=== PATIENT | male | born 1960 | race Asian ===

== ENCOUNTER 2023-03-28 05:43 | Day surgery (SDC) | payer MEDICAID ==
[~2023-03-28] VITALS: Ht 175.3 cm; Wt 93.0 kg
[2023-03-28] MEDS ORDERED: diphenhydrAMINE 50 MG/ML VIAL ONE (08:03)
[2023-03-28] MEDS ORDERED: MIDAZOLAM 2 MG/2 ML VIAL ONE (08:03)
[2023-03-28] MEDS ORDERED: fentaNYL citrate 0.05 MG/ML VIAL ONE (08:03)
[2023-03-28] MEDS ORDERED: LIDOCAINE 2% 100 MG/5 ML UJET TP ONE ×2 (08:03→15:00)
[2023-03-28] MEDS ORDERED: MEPERIDINE 25 MG/ML SYR ONE (08:21)
[2023-03-28] MEDS ORDERED: fentaNYL citrate 0.05 MG/ML VIAL IVP ONE ×2 (15:00→15:15)
[2023-03-28] MEDS ORDERED: MIDAZOLAM 2 MG/2 ML VIAL IVP ONE (15:15)
== END 2023-03-28 10:38 | disposition home or self-care (01) ==
LOC: MDS 05:43 → MMU 06:35 → MDS 10:38
PROVIDERS: ATTEND Internal Medicine
DX: Z08 Encounter for follow-up examination after completed treatment for malignant neoplasm (principal); D12.3 Benign neoplasm of transverse colon; D12.5 Benign neoplasm of sigmoid colon; Z80.0 Family history of malignant neoplasm of digestive organs; E78.5 Hyperlipidemia, unspecified; K70.30 Alcoholic cirrhosis of liver without ascites; K26.3 Acute duodenal ulcer without hemorrhage or perforation; N50.89 Other specified disorders of the male genital organs; Z79.899 Other long term (current) drug therapy
CPT/HCPCS: 45380; 45381; 45385; 88305; J0690; J2250; J3010; J7060; J1200; J2175

== ENCOUNTER 2023-05-09 07:38 | Day surgery (SDC) | payer MEDICAID ==
[~2023-05-09] VITALS: Ht 177.8 cm; Wt 97.5 kg
[2023-05-09] MEDS ORDERED: fentaNYL citrate 0.05 MG/ML VIAL ONE (09:14)
[2023-05-09] MEDS ORDERED: MIDAZOLAM 2 MG/2 ML VIAL ONE (09:14)
[2023-05-09] MEDS ORDERED: MIDAZOLAM 2 MG/2 ML VIAL IVP ONE (15:40)
== END 2023-05-09 10:20 | disposition home or self-care (01) ==
LOC: MDS 07:38 → MMU 07:40 → MDS 10:20
PROVIDERS: ATTEND Internal Medicine Gastroenterology
DX: K70.9 Alcoholic liver disease, unspecified (principal); I10 Essential (primary) hypertension; Z86.73 Personal history of transient ischemic attack (TIA), and cerebral infarction without residual deficits; Z79.899 Other long term (current) drug therapy
CPT/HCPCS: J2250; J3010